=== PATIENT | female | born 1985 | race Two or more races ===

== ENCOUNTER 2024-02-01 02:34 | Emergency (ER) | payer OTHER ==
[~2024-02-01] VITALS: Ht 167.6 cm; Wt 83.9 kg
[2024-02-01] MEDS ORDERED: DOXYCYCLINE HYCLATE (100 MG) 100 MG TABLET ONE (03:15)
[2024-02-01] MEDS: DOXYCYCLINE HYCLATE (100 MG) 100 MG TABLET PO ONE (03:19)
[2024-02-01] MEDS ORDERED: DOXY-326 PO (03:29)
[2024-02-01] MEDS ORDERED: KETO10TA2 PO (03:29)
[2024-02-01] MEDS: KETOROLAC TROMETHAMINE 15 MG/ML VIAL IM ONE (03:30)
[2024-02-01] MEDS ORDERED: KETOROLAC TROMETHAMINE 15 MG/ML VIAL ONE (03:37)
[2024-02-01 03:54] VITALS: BP 126/77; TEMP 98; O2SAT 100
== END 2024-02-01 03:54 | disposition home or self-care (01) ==
LOC: ER 02:38
DX: S30.860A Insect bite (nonvenomous) of lower back and pelvis, initial encounter (principal); L03.317 Cellulitis of buttock; I72.9 Aneurysm of unspecified site; Z60.2 Problems related to living alone; W57.XXXA Bitten or stung by nonvenomous insect and other nonvenomous arthropods, initial encounter; Y93.89 Activity, other specified; Y92.098 Other place in other non-institutional residence as the place of occurrence of the external cause; Y99.8 Other external cause status
CPT/HCPCS: 99283; 96372; J1885